=== PATIENT | female | born 1955 | race Caucasian/White ===

== ENCOUNTER 2018-03-29 04:59 | Emergency (ER) | payer OTHER ==
[~2018-03-29] VITALS: Ht 152.4 cm; Wt 56.6 kg
[2018-03-29 05:35] LABS: CULTURE INDICATED? YES; MICROSCOPIC AUTO
[2018-03-29] MEDS ORDERED: PHENAZOPYRIDINE 200 MG TABLET ONE (05:43)
[2018-03-29 05:57] VITALS: BP 135/78
[2018-03-29] MEDS ORDERED: PHENAZOPYRIDINE 200 MG TABLET PO ONE (06:00)
== END 2018-03-29 05:59 | disposition home or self-care (01) ==
LOC: ED 05:50
DX: N30.00 Acute cystitis without hematuria (principal); I10 Essential (primary) hypertension
CPT/HCPCS: 81001; 87077; 87086; 87186; 99283